=== PATIENT | male | born 1935 | race Hispanic/Latino ===

== ENCOUNTER 2017-11-29 14:14 | Emergency (ER) | payer MEDICARE, OTHER ==
[~2017-11-29] VITALS: Ht 157.5 cm; Wt 80.7 kg
[~2017-11-29 14:14] MED LIST: ALLERGY10 M1 PO; ASPIRIN81 MG PO; ATORVASTATIN CA40 MG PO; CIPRO XR500 MG OR; CIPROFLOXACN250 MG PO; CLOPIDOGREL75 MG PO; DOCU SOFT100 MG PO; Glucophage PO; HYDROCHLOROT12.5 MG OR; HYDROCHLOROT25 MG PO; KEFLEX250 MG PO; LEVEMIR1000 UNITS SC; LISINOP/HCTZ1 TA1 OR; LISINOPRIL10 M1 PO; LISINOPRIL20 MG PO; METFORMIN500 MG PO; MILK OF MAG30 ML/UDC PO; PAIN & FEVER325 MG PO; PRILOSEC20 MG PO; TRAMADOL HCL50 MG PO; ULTRAM50 MG OR
[2017-11-29 15:51] LABS: HEMATOCRIT 50.4 % (39.0-50.0); HEMOGLOBIN 16.7 g/dl (14.0-18.0); IMMATURE GRANULOCYTES 0.6 % (0.0-1.0); MEAN CORPUSCULAR HGB 29.8 pG CALC (26.0-32.0); MEAN CORPUSCULAR HGB CONC 33.1 g/L CALC (32.0-36.0); NEUT# 12.16 thou/uL (1.82-7.42); RED BLOOD COUNT 5.6 mill/uL (4.70-6.10); RED CELL DISTRI WIDTH 13.2 % (11.5-15.5)
[2017-11-29] MEDS ORDERED: NORCO1 TA1 PO (16:14)
[2017-11-29] MEDS ORDERED: SENNA S1 TAB PO (16:16)
[2017-11-29 16:18] LABS: ALBUMIN 4.1 g/dL (3.2-5.0); ALKALINE PHOSPHATASE 163 u/l (38-126); ANION GAP 24 (6-22 (CALC)); BILIRUBIN, TOTAL 0.9 mg/dL (0.0-1.4); BUN 20 mg/dL (8-23); BUN/CREATININE RATIO 19 (12-20 (CALC)); CALCIUM 9.3 mg/dL (8.4-10.2); CARBON DIOXIDE 17 mmol/l (22-30); CHLORIDE 102 mmol/l (95-108); GFR > 60 ML/MIN (>=60 (CALC)); GFR FOR AFR.AMER. > 60 ML/MIN (>=60 (CALC)); POTASSIUM 4.6 mmol/l (3.5-5.1); SGOT/AST 39 u/l (19-48); SGPT/ALT 31 u/l (11-66); SODIUM 139 mmol/l (137-146); TOTAL PROTEIN 7.7 g/dL (6.3-8.2)
[2017-11-29] MEDS ORDERED: SEROQUEL25 MG PO (16:18)
[2017-11-29 16:21] LABS: GLUCOSE 548 mg/dL (82-115)
[2017-11-29] MEDS ORDERED: HALDOL1 M1 PO (16:22)
[2017-11-29 16:51] LABS: MYOGLOBIN 276 ng/mL (0 - 121)
[2017-11-29] MEDS ORDERED: PREVACID30 M3 PO (18:52)
[2017-11-29 19:20] VITALS: BP 177/72
== END 2017-11-29 18:55 | disposition home or self-care (01) ==
LOC: ED 14:14
PROVIDERS: Emergency Medicine
DX: R55 Syncope and collapse (principal); K92.2 Gastrointestinal hemorrhage, unspecified; Y92.009 Unspecified place in unspecified non-institutional (private) residence as the place of occurrence of the external cause; I10 Essential (primary) hypertension; F03.90 Unspecified dementia, unspecified severity, without behavioral disturbance, psychotic disturbance, mood disturbance, and anxiety; C61 Malignant neoplasm of prostate; Z86.73 Personal history of transient ischemic attack (TIA), and cerebral infarction without residual deficits; E11.9 Type 2 diabetes mellitus without complications; Z79.84 Long term (current) use of oral hypoglycemic drugs; R53.1 Weakness; E78.00 Pure hypercholesterolemia, unspecified
CPT/HCPCS: Q9967; S0164